=== PATIENT | male | born 1985 | race Hispanic/Latino ===

== ENCOUNTER 2017-05-02 03:59 | Emergency (ER) | payer SELFPAY ==
[~2017-05-02] VITALS: Ht 160 cm; Wt 99.8 kg
== END 2017-05-02 04:14 | disposition left against medical advice (07) ==
LOC: ER 03:59
DX: H92.01 Otalgia, right ear (principal)

== ENCOUNTER 2022-03-17 11:02 | Emergency (ER) | payer SELFPAY ==
[~2022-03-17] VITALS: Ht 162.6 cm; Wt 102.1 kg
[2022-03-17] MEDS ORDERED: LISINOPRIL10 MG PO (11:19)
[2022-03-17] MEDS ORDERED: METFORMIN HCL500 MG PO (11:19)
[2022-03-17 11:31] LABS: BASOPHILS % 0.1 % (0.0-1.0); EOSINOPHILS # (AUTO) 0.2 (0.0-0.4); EOSINOPHILS % 2.5 % (0.0-6.0); HEMATOCRIT 51.6 % (38.2-49.6); HEMOGLOBIN 16.3 g/dL (14.0-18.0); LYMPHOCYTES # (AUTO) 2.4 (1.0-3.2); LYMPHOCYTES % 31.1 % (18.0-39.1); MEAN CORPUSCULAR HEMOGLOBIN 27.7 pg (28-32); MEAN CORPUSCULAR HGB CONC 31.6 g/dL (31-35); MEAN CORPUSCULAR VOLUME 87.6 fL (81-99); MONOCYTES # (AUTO) 0.4 (0.2-0.8); MONOCYTES % 4.6 % (4.4-11.3); NEUTROPHILS # (AUTO) 4.7 (2.1-6.9); NEUTROPHILS % 61.4 % (38.7-80.0); PLATELET COUNT 288 x10e3/uL (140-360); RED BLOOD COUNT 5.89 x10e6/uL (4.3-5.7); RED CELL DISTRIBUTION WIDTH 12.4 % (11.7-14.4)
[2022-03-17 12:03] LABS: ALBUMIN/GLOBULIN RATIO 1.2 (0.8-2.0); CALCIUM 9.4 mg/dL (8.4-10.2); CREATININE, SERUM 0.86 mg/dL (0.72-1.25)
[2022-03-17 12:42] VITALS: BP 103/65
== END 2022-03-17 12:44 | disposition home or self-care (01) ==
LOC: ER 11:06
DX: E11.65 Type 2 diabetes mellitus with hyperglycemia (principal); R42 Dizziness and giddiness; I10 Essential (primary) hypertension
CPT/HCPCS: 36415; 80053; 82948; 85025; 93005; 99283